=== PATIENT | male | born 1950 | race Caucasian/White ===

== ENCOUNTER → 2018-08-05 | Outpatient (CLI) | payer OTHER ==
[2018-08-05 07:03] LABS: POTASSIUM 4.2 mmol/L (3.5-5.1)
== END ==
LOC: M.LAB 05:03
PROVIDERS: Student in an Organized Health Care Education/Training Program
DX: Z01.812 Encounter for preprocedural laboratory examination (principal); E11.9 Type 2 diabetes mellitus without complications